=== PATIENT | male | born 1995 | race Two or more races ===

== ENCOUNTER 2019-04-23 11:42 | Emergency (ER) | payer OTHER ==
[~2019-04-23] VITALS: Ht 172.7 cm; Wt 68.0 kg
[2019-04-23 12:30] VITALS: BP 132/70
[2019-04-23] MEDS ORDERED: KETOROLAC TROMETH 60MG/2ML VIAL IM ONE (12:45)
[2019-04-23] MEDS ORDERED: KETOROLAC TROMETH 15 mg/ml 1ML VL IV ONE (13:00)
[2019-04-23] MEDS ORDERED: cefTRIAXone SOD 1,000 MG VL IM ONE (13:30)
[2019-04-23] MEDS ORDERED: cefTRIAXone 1GM/50ML D5W 50 ML IV ONE (13:45)
== END 2019-04-23 14:38 | disposition home or self-care (01) ==
LOC: EDBD 11:42 → ER 11:48
DX: S52.332B Displaced oblique fracture of shaft of left radius, initial encounter for open fracture type I or II (principal); V43.53XA Car driver injured in collision with pick-up truck in traffic accident, initial encounter; Y93.89 Activity, other specified; Y99.8 Other external cause status; Y92.410 Unspecified street and highway as the place of occurrence of the external cause
CPT/HCPCS: 73090; 96365; 96375; 99283; J0696; J1885